=== PATIENT | female | born 1965 | race Two or more races ===

== ENCOUNTER 2016-07-13 15:42 | Emergency (ER) | payer OTHER ==
[~2016-07-13] VITALS: Ht 157.5 cm; Wt 104.3 kg
[2016-07-13 16:36] LABS: Basophils # (auto) 0 uL; Basophils % (auto) 0.5 % (0.0-2.0); DEFINITIVE VIEW TRANSMISSION; Eosinophils # (auto) 0.1 uL; Eosinophils % (auto) 1.1 % (0.0-7.0); Hematocrit 40.8 % (36.0-46.0); Hemoglobin 13.2 g/dL (12.2-16.2); Lymphocytes # (auto) 1.6 uL; Lymphocytes % (auto) 16.7 % (10.0-50.0); Mean Corpuscular Hemoglobin 26.1 pg (28.0-32.0); Mean Corpuscular Hgb Conc. 32.4 g/dL (32.0-36.0); Mean Corpuscular Volume 80.8 fL (80.0-100.0); Mean Platelet Volume 8.6 fL (7.4-10.4); Monocytes # (auto) 0.7 uL; Monocytes % (auto) 7.1 % (0.0-12.0); Neutrophils % (auto) 74.6 % (37.0-80.0); Platelet Count (auto) 242 10^3/uL (140-450); Red Cell Distribution Width 15.9 % (11.6-16.0); White Blood Cell 9.4 10^3/uL (4.4-10.8)
[2016-07-13 16:39] LABS: Albumin 3.8 g/dL (3.4-5.0); Anion Gap 8 (5-15); Aspartate Aminotransferase 30 U/L (15-37); BUN/Creatinine Ratio 16.9; Blood Urea Nitrogen 13 mg/dL (7-18); Calcium 8.9 mg/dL (8.5-10.1); Carbon Dioxide 29 mmol/L (21-32); Chloride 103 mmol/L (98-107); GFR African American 102 mL/min; GFR Non-African American 84 mL/min; Glucose 114 mg/dL (74-106); Magnesium 2.3 mg/dL (1.6-2.6); Potassium 3.6 mmol/L (3.5-5.1); Sodium 140 mmol/L (136-145)
[2016-07-13 16:44] LABS: Alkaline Phosphatase 76 U/L (45-117); Bilirubin, Total 0.3 mg/dL (0.2-1.0); Total Protein 7.6 g/dL (6.4-8.2)
[2016-07-13] MEDS ORDERED: SODIUM CHLORIDE 0.9% 1,000 ML IV ONE (17:00)
[2016-07-13] MEDS ORDERED: LORazepam 2MG/ML-1ML VIAL IV ONE (17:00)
[2016-07-13 19:48] VITALS: BP 149/91
== END 2016-07-13 19:51 | disposition home or self-care (01) ==
LOC: ER 15:42
DX: F41.9 Anxiety disorder, unspecified (principal); I10 Essential (primary) hypertension
CPT/HCPCS: 36415; 80053; 83735; 84443; 84484; 85025; 93005

== ENCOUNTER 2022-02-28 10:19 | Emergency (ER) | payer OTHER ==
[~2022-02-28] VITALS: Ht 157.5 cm; Wt 99.5 kg
[2022-02-28 11:09] LABS: Basophils # (auto) 0.1 10 ^3/uL (0-0.2); Eosinophils # (auto) 0.1 10 ^3/uL (0-0.8); Eosinophils % (auto) 2.2 % (0.0-7.0); Hematocrit 48.7 % (36.0-46.0); Lymphocytes # (auto) 1.3 10 ^3/uL (0.4-5.4); Lymphocytes % (auto) 22.5 % (10.0-50.0); Mean Corpuscular Hemoglobin 29.5 pg (28.0-32.0); Mean Corpuscular Hgb Conc. 32.9 g/dL (32.0-36.0); Mean Corpuscular Volume 89.7 fL (80.0-100.0); Monocytes # (auto) 0.5 10 ^3/uL (0-1.3); Monocytes % (auto) 8.8 % (0.0-12.0); Neutrophils # (auto) 3.7 10 ^3/uL (1.6-8.6); Neutrophils % (auto) 65.5 % (37.0-80.0); Nucleated Red Blood Cells % 0.2 %; Red Blood Cells 5.43 10^6/uL (4.0-5.20); Red Cell Distribution Width 13.1 % (11.8-14.3); White Blood Cell 5.7 10^3/uL (4.4-10.8)
[2022-02-28 11:31] LABS: BUN/Creatinine Ratio 22.9; Calcium 9.3 mg/dL (8.5-10.1); Potassium 4.4 mmol/L (3.5-5.1)
[2022-02-28 11:34] LABS: Bilirubin, Total 0.6 mg/dL (0.2-1.0); Total Protein 7.9 g/dL (6.4-8.2)
[2022-02-28] MEDS ORDERED: KETOROLAC TROMETH 60MG/2ML VIAL IM ONE (12:15)
[2022-02-28] MEDS ORDERED: SODIUM CHLORIDE 0.9% 1,000 ML IV ONE ×2 (12:30)
[2022-02-28 18:05] LABS: Urine Bacteria FEW /hpf (None Seen); Urine Blood TRACE /uL (Negative); Urine Mucus FEW (None Seen); Urine Specific Gravity 1.019 (1.001-1.035); Urine WBC 11 /hpf (0 - 5)
[2022-02-28 21:04] VITALS: BP 116/76
== END 2022-02-28 21:57 | disposition home or self-care (01) ==
LOC: ER 10:19
DX: A08.4 Viral intestinal infection, unspecified (principal); E86.0 Dehydration; F12.10 Cannabis abuse, uncomplicated; I10 Essential (primary) hypertension
CPT/HCPCS: 36415; 74176; 80053; 81001; 83690; 84484; 85025; 96361; 96374; 99284; J1885; J7030; 96360; 96372

== ENCOUNTER 2025-01-30 15:37 | Inpatient (IN) | payer MEDICAID, SELFPAY ==
[~2025-01-30] VITALS: Ht 157.5 cm; Wt 95.5 kg
--- NOTE | 2025-01-30 16:38 | ED.PDOC ---
History of Present Illness HPI Comments Ms. Ruiz is a 59-year-old female with prior medical history of prediabetes and hypertension, who presents today with chief complaint of dysuria. She states that for the last 3 weeks she has had dysuria, suprapubic pain described as intermittent burning, nonradiating, 8/10 intensity, associated with nausea and febrile sensation. The patient states that for the last 3 weeks she has been treated outpatient for this UTI that has not resolved. She brings documentation showing she was previously treated with ciprofloxacin and Bactrim without results. Additionally presents with results from a 01/23/2025 urine culture showing Klebsiella pneumoniae resistant to Ampicllin/Sulbactam, Ceftriaxone, Ciprofloxacin, Gentamicin, and Bactrim. She was sent to the ED from urgent due to outpatient treatment failure. On initial evaluation, the seems well, afebrile, vitals are stable, she is able to ambulate without difficulty, with no overt signs of distress. Chief Complaint: Urinary Time Seen by MD: 15:49 Allergies: Coded Allergies: NO KNOWN ALLERGIES (Unverified , 07/13/16) Information Source: Patient Mode of Arrival: Ambulatory Severity: Mild Timing: Weeks Duration: Since onset Past Medical History PAST MEDICAL HISTORY: HTN Past Medical History (Other): Prediabetes Surgical History: Denies all surgeries WATER PUMP SERVICER History: No Pertinent WATER PUMP SERVICER History Family History Family History: Family hx of DM, Family hx of Cancer, Family hx of HTN Social History Smoker: Non-Smoker, Other Alcohol: Denies ETOH Use Drugs: Denies Drug Use Lives In: Home Constitutional: denies: chills, diaphoresis, fatigue, fever, malaise, sweats, weakness EENTM: denies: blurred vision, double vision, hearing loss, nasal discharge, throat pain Respiratory: denies: cough, hemoptysis, orthopnea, shortness of breath Cardiovascular: denies: chest pain, dizzy spells, diaphoresis, Dyspnea on exertion, edema, lightheadedness, palpitations Gastrointestinal: reports: nausea, others (Suprapubic pain ); denies: abdomen distended, abdominal pain, constipated, diarrhea, dysphagia, difficulty swallowing, hematemesis, melena, poor appetite, poor fluid intake, rectal bleeding, vomiting Genitourinary: reports: burning, dysuria, frequency; denies: flank pain, hematuria, incontinence, pain, urgency Neurological: denies: dizziness, fainting, headache, left sided weakness, numbness, paresthesia, seizure, tremors, weakness Musculoskeletal: denies: back pain, joint pain, joint swelling, muscle pain, muscle stiffness, neck pain Physical Exam General Appearance: Normal HEENT: Normal ENT Inspection, PERRL/EOMI, Pharynx Normal Neck: Full Range of Motion, Non-Tender, Normal Inspection Respiratory: Chest Non-Tender, Lungs Clear, No Accessory Muscle Use, No Respiratory Distress, Normal Breath Sounds Cardiovascular: No Edema, No Murmur, Normal Peripheral Pulses, Regular Rate/Rhythm Breast Exam: Deferred Gastrointestinal: Non Tender, Normal Bowel Sounds, Soft Genitalia: Deferred Pelvic: Deferred Rectal: Deferred Extremities: Normal capillary refill, Normal inspection, Normal range of motion, Non-tender, No pedal edema Neurologic: Alert, Normal Affect, Normal Mood Cerebellar Function: Normal Reflexes: NOT DONE Skin: Normal Color Peripheral Pulses: 3+ dorsalis pedis (R), 3+ dorsalis pedis (L) Lymphatic: Other (No cervical adenopathy) Was a procedure done? Was a procedure done?: No Differential Dx Considerations may include: Cystitis, Pyelonephritis, urethritis, interstitial cystitis, nephrolithiasis, sepsis, septic shock X-Ray, Labs, Meds, VS Vital Signs Date Time Temp Pulse Resp B/P (MAP) Pulse Ox O2 Delivery O2 Flow Rate FiO2 01/30/25 15:44 97.9 91 15 147/94 96 97.9 Lab Test 01/30/25 19:05 01/30/25 17:11 Range/Units Urine Color Pending Urine Clarity Pending Urine pH Pending Urine Specific Malmo Pending Urine Protein Pending Urine Ketones Pending Urine Blood Pending Urine Nitrite Pending Urine Bilirubin Pending Urine Urobilinogen Pending Urine Leukocyte Esterase Pending Urine RBC Pending Urine Microscopic WBC Pending Urine Squamous Epithelial Cells Pending Urine Bacteria Pending Urine Glucose Pending White Blood Count 8.1 4.4-10.8 10^3/uL Red Blood Count 5.14 4.0-5.20 10^6/uL Hemoglobin 15.9 12.2-16.2 g/dL Hematocrit 46.0 36.0-46.0 % Mean Corpuscular Volume 89.5 80.0-100.0 fL Mean Corpuscular Hemoglobin 30.9 28.0-32.0 pg Mean Corpuscular Hemoglobin Concent 34.6 32.0-36.0 g/dL Red Cell Distribution Width 13.2 11.8-14.3 % Platelet Count 244 140-450 10^3/uL Mean Platelet Volume 7.6 6.9-10.8 fL Neutrophils (%) (Auto) 62.6 37.0-80.0 % Lymphocytes (%) (Auto) 26.3 10.0-50.0 % Monocytes (%) (Auto) 8.2 0.0-12.0 % Eosinophils (%) (Auto) 1.9 0.0-7.0 % Basophils (%) (Auto) 1.0 0.0-2.0 % Neutrophils # (Auto) 5.1 1.6-8.6 10 ^3/uL Lymphocytes # (Auto) 2.1 0.4-5.4 10 ^3/uL Monocytes # (Auto) 0.7 0-1.3 10 ^3/uL Eosinophils # (Auto) 0.2 0-0.8 10 ^3/uL Basophils # (Auto) 0.1 0-0.2 10 ^3/uL Nucleated Red Blood Cells 1.1 % Sodium Level 143 136-145 mmol/L Potassium Level 3.6 3.5-5.1 mmol/L Chloride Level 106 98-107 mmol/L Carbon Dioxide Level 29 20-31 mmol/L Anion Gap 8 5-15 Blood Urea Nitrogen 9 9-23 mg/dL Creatinine 0.68 0.550-1.02 mg/dL Glomerular Filtration Rate Calc 100 >90 mL/min BUN/Creatinine Ratio 13.2 10.0-20.0 Serum Glucose 95 74-106 mg/dL Lactic Acid Level 0.7 0.4-2.0 mmol/L Calcium Level 9.9 8.7-10.4 mg/dL Current Medications Medications (Trade) Dose Ordered Sig/Guido Route Start Time Stop Time Status Last Admin Piperacillin Sod/ Tazobactam Sod 100 ml @ 100 mls/hr ONCE ONCE IV 01/30/25 16:30 01/30/25 17:29 DC 01/30/25 19:01 Time of 1ST Reevaluation: 17:49 Reevaluation 1ST: Unchanged Patient Education/Counseling: Diagnosis, Treatment Family Education/Counseling: No Family Present Comments The patient presents today from urgent care for evaluation after outpatient treatment failure of UTI She presents documentation stating she was previously treated with ciprofloxacin and Bactrim without result She presents outside urine culture result from 01/23/2025 showing [id number] CFU/mL of Klebsiella pneumoniae resistant to Ampicillin/sulbactam, ceftriaxone, ciprofloxacin, gentamicin and Bactrim. Culture shows sensitivity to Zosyn, amikacin, ertapenem, and meropenem. CBC within normal range, BMP normal range , lactic acid is 0.7, results of UA are pending Due to failure of outpatient oral antibiotic treatment, the patient will be admitted for IV antibiotics Due to outside cultures showing sensitivity to Zosyn, the patient was given 1 dose of Zosyn SEPSIS Sepsis Screen Date sepsis recognized/suspect: Jan 30, 2025 Time Sepsis recognized/suspect: 154 Recent Procedure: No On Antibiotic Therapy: No Respiratory Rate >20: No Heart Rate >90: No Temp<36 C (96.8 F) or >38.3 C: No SBP <90 or MAP <65 mmHG: No New Acute Mental Status Change: No Is the patient on CPAP, BIPAP,: No Physician Orders Urinalysis (01/30/25 16:11) Blood Culture (01/30/25 16:16) Urine Bacterial Culture (01/30/25 16:16) Vital Signs Date Time Temp Pulse Resp B/P (MAP) Pulse Ox O2 Delivery O2 Flow Rate FiO2 01/30/25 15:44 97.9 91 15 147/94 96 97.9 Laboratory Tests Test 01/30/25 17:11 Lactic Acid Level 0.7 mmol/L (0.4-2.0) White Blood Count 8.1 10^3/uL (4.4-10.8) Medications Medications Dose Ordered Sig/Guido Route Start Time Stop Time Status Last Admin Dose Admin Piperacillin Sod/ Tazobactam Sod 100 ml @ 100 mls/hr ONCE ONCE IV 01/30/25 16:30 01/30/25 17:29 DC 01/30/25 19:01 Departure 1 Departure Time of Disposition: 15:38 Impression: Primary Impression: UTI (urinary tract infection) Disposition: 30 STILL A PATIENT Admit to: Med Surg Condition: Stable Critical Care Note Critical Care Time?: No Stability Stability form required: DIXIE Restrepo RESIDENT Jan 30, 2025 16:38
[2025-01-30 17:29] LABS: Hematocrit 46.0 % (36.0-46.0); Hemoglobin 15.9 g/dL (12.2-16.2); Mean Corpuscular Hemoglobin 30.9 pg (28.0-32.0); Mean Corpuscular Volume 89.5 fL (80.0-100.0); Nucleated Red Blood Cells % 1.1 %
[2025-01-30 17:32] LABS: Chloride 106 mmol/L (98-107); Potassium 3.6 mmol/L (3.5-5.1); Sodium 143 mmol/L (136-145)
[2025-01-30 17:33] LABS: Anion Gap 8 (5-15); Carbon Dioxide 29 mmol/L (20-31)
[2025-01-30 17:34] LABS: Calcium 9.9 mg/dL (8.7-10.4)
[2025-01-30 17:38] LABS: Glucose 95 mg/dL (74-106)
[2025-01-30 17:39] LABS: BUN/Creatinine Ratio 13.2 (10.0-20.0); Blood Urea Nitrogen 9 mg/dL (9-23)
[2025-01-30] MEDS: PIPERACILLIN-TAZOB 3.375GM 100 ML IV ONE (19:01)
[2025-01-30 19:47] LABS: Urine Protein, UAD Negative (Negative)
[2025-01-30 21:00] VITALS: PULSE 79; RESP 20; O2SAT 98
[2025-01-30] MEDS ORDERED: ONDANSETRON HCL 4 MG/2 ML VIAL IV PRN (22:15)
[2025-01-30] MEDS ORDERED: ACETAMINOPHEN 325 MG TAB PO PRN (22:15)
--- NOTE | 2025-01-30 22:26 | DVHHP2 ---
History of Present Illness Reason for Visit: Urinary symptoms History of Present Illness 59-year-old female presents for evaluation of urinary symptoms. Patient reports being treated for a urinary tract infection for the past three weeks. She states completing the last day of antibiotics today. She reports still having dysuria with urinary frequency. Denies fever or chills. No abdominal pain. Past Medical History Hypertension Past Surgical History Denies Family History Noncontributory Smoke: No ALCOHOL: none Drugs: None Lives: with Family Review of Systems Review of Systems Review of systems are currently negative otherwise addressed in HPI. Allergies: Coded Allergies: NO KNOWN ALLERGIES (Unverified , 07/13/16) Exam Vital Signs Vital Signs Date Time Temp Pulse Resp B/P (MAP) Pulse Ox O2 Delivery O2 Flow Rate FiO2 01/30/25 21:23 97.8 69 14 125/86 (99) 95 97.8 Exam Gen: 59-year-old female in mild distress Skin: Warm, dry, normal color and texture, no rash. HEENT: Normocephalic atraumatic, mucous membranes moist and pink. Neck: Cervical and supraclavicular nodes normal without enlargement, trachea is midline, thyroid gland is normal without masses. Pulmonary: Clear to auscultation and percussion bilaterally. Cardiac: Regular rate and rhythm. No murmur Abdomen: Soft, nontender, nondistended, bowel sounds present all 4 quadrants, no guarding, no rigidity, no organomegaly. Extremities: No cyanosis, clubbing, no edema Neuro: Cranial nerves II through XII grossly intact, normal affect and speech, no focal motor deficits. Labs/Xrays Labs Test 01/30/25 19:05 01/30/25 17:11 Range/Units Urine Color Light-yellow Yellow Urine Clarity Clear Clear Urine pH 6.5 5.0-9.0 Urine Specific Proctor 1.016 1.001-1.035 Urine Protein Negative Negative Urine Ketones Negative Negative Urine Blood Negative Negative /uL Urine Nitrite Negative Negative Urine Bilirubin Negative Negative Urine Urobilinogen Normal Negative mg/dL Urine Leukocyte Esterase Negative Negative /uL Urine RBC 2 0 - 4 /hpf Urine Microscopic WBC 1 0-5 /HPF Urine Squamous Epithelial Cells Few <5 /hpf Urine Bacteria None seen None Seen /hpf Urine Glucose Normal Normal mg/dL White Blood Count 8.1 4.4-10.8 10^3/uL Red Blood Count 5.14 4.0-5.20 10^6/uL Hemoglobin 15.9 12.2-16.2 g/dL Hematocrit 46.0 36.0-46.0 % Mean Corpuscular Volume 89.5 80.0-100.0 fL Mean Corpuscular Hemoglobin 30.9 28.0-32.0 pg Mean Corpuscular Hemoglobin Concent 34.6 32.0-36.0 g/dL Red Cell Distribution Width 13.2 11.8-14.3 % Platelet Count 244 140-450 10^3/uL Mean Platelet Volume 7.6 6.9-10.8 fL Neutrophils (%) (Auto) 62.6 37.0-80.0 % Lymphocytes (%) (Auto) 26.3 10.0-50.0 % Monocytes (%) (Auto) 8.2 0.0-12.0 % Eosinophils (%) (Auto) 1.9 0.0-7.0 % Basophils (%) (Auto) 1.0 0.0-2.0 % Neutrophils # (Auto) 5.1 1.6-8.6 10 ^3/uL Lymphocytes # (Auto) 2.1 0.4-5.4 10 ^3/uL Monocytes # (Auto) 0.7 0-1.3 10 ^3/uL Eosinophils # (Auto) 0.2 0-0.8 10 ^3/uL Basophils # (Auto) 0.1 0-0.2 10 ^3/uL Nucleated Red Blood Cells 1.1 % Sodium Level 143 136-145 mmol/L Potassium Level 3.6 3.5-5.1 mmol/L Chloride Level 106 98-107 mmol/L Carbon Dioxide Level 29 20-31 mmol/L Anion Gap 8 5-15 Blood Urea Nitrogen 9 9-23 mg/dL Creatinine 0.68 0.550-1.02 mg/dL Glomerular Filtration Rate Calc 100 >90 mL/min BUN/Creatinine Ratio 13.2 10.0-20.0 Serum Glucose 95 74-106 mg/dL Lactic Acid Level 0.7 0.4-2.0 mmol/L Calcium Level 9.9 8.7-10.4 mg/dL SEPSIS Sepsis Screen Date sepsis recognized/suspect: Jan 30, 2025 Time Sepsis recognized/suspect: 1547 Recent Procedure: No On Antibiotic Therapy: No Respiratory Rate >20: No Heart Rate >90: No Temp<36 C (96.8 F) or >38.3 C: No SBP <90 or MAP <65 mmHG: No New Acute Mental Status Change: No Is the patient on CPAP, BIPAP,: No Physician Orders Blood Culture (01/30/25 16:16) Urine Bacterial Culture (01/30/25 16:16) Admit (01/30/25 20:02) Vital Signs Date Time Temp Pulse Resp B/P (MAP) Pulse Ox O2 Delivery O2 Flow Rate FiO2 01/30/25 21:23 97.8 69 14 125/86 (99) 95 97.8 01/30/25 15:44 97.9 91 15 147/94 96 97.9 Laboratory Tests Test 01/30/25 17:11 Lactic Acid Level 0.7 mmol/L (0.4-2.0) White Blood Count 8.1 10^3/uL (4.4-10.8) Medications Medications Dose Ordered Sig/Guido Route Start Time Stop Time Status Last Admin Dose Admin Piperacillin Sod/ Tazobactam Sod 100 ml @ 100 mls/hr ONCE ONCE IV 01/30/25 16:30 01/30/25 17:29 DC 01/30/25 19:01 100 MLS/HR Assessment/Plan Assessment/Plan Assessment Complicated UTI Hypertension Failed outpatient therapy Plan Admit the patient to [facility] to the hospitalist Ertapenem Resume home medications Continue treatment per orders. Plan discussed with: Patient My Orders Orders - [facility] Procedure Category Date Status Time Admit ADMIT 01/30/25 Transmitted 20:02 Date of Service: Jan 30, 2025 Billing Provider: [facility] Common Visit Codes: [id number] INP/OBS CARE (MOD) [facility] Jan 30, 2025 22:26
[2025-01-30 23:10] VITALS: BP 122/73; PULSE 65; RESP 17; TEMP 98.2; O2SAT 95
[2025-01-30 23:17] VITALS: BP 122/73; PULSE 65; RESP 16; TEMP 98.2; O2SAT 95
[2025-01-31 01:00] VITALS: BP 108/73; PULSE 55; RESP 17; TEMP 97.9; O2SAT 95
[2025-01-31 05:00] VITALS: BP 103/67; PULSE 53; RESP 17; TEMP 98; O2SAT 97
[2025-01-31 06:18] LABS: Anion Gap 9 (5-15); Carbon Dioxide 28 mmol/L (20-31); Chloride 105 mmol/L (98-107); Potassium 3.7 mmol/L (3.5-5.1); Sodium 142 mmol/L (136-145)
[2025-01-31 06:20] LABS: Calcium 9.4 mg/dL (8.7-10.4)
[2025-01-31 06:25] LABS: BUN/Creatinine Ratio 15.7 (10.0-20.0); Blood Urea Nitrogen 11 mg/dL (9-23); Glucose 93 mg/dL (74-106)
[2025-01-31 08:00] VITALS: RESP 17; O2SAT 97
[2025-01-31 09:00] VITALS: BP 108/68; PULSE 62; RESP 17; TEMP 97.7; O2SAT 97
[2025-01-31] MEDS ORDERED: PATIENTS OWN MEDICATION (ertapenem 1 GM) IV SCH (10:00)
[2025-01-31] MEDS: ERTAPENEM IV SCH (10:40)
[2025-01-31] MEDS: NS IV SCH (10:40)
[2025-01-31] MEDS ORDERED: BACDST PO (11:05)
[2025-01-31 13:00] VITALS: BP_SYST 108; BP_SYST 117; BP_DIAS 68; BP_DIAS 85; PULSE 66; RESP 17; TEMP 36.5; O2SAT 94
== END 2025-01-31 15:05 | disposition home or self-care (01) | DRG 690 ==
LOC: ER 15:37 → OVERFLOW 20:03 → CENTRAL 23:10
PROVIDERS: ADMIT Hospitalist; ATTEND Hospitalist
DX: N39.0 Urinary tract infection, site not specified (principal); I10 Essential (primary) hypertension; Z83.3 Family history of diabetes mellitus; Z82.49 Family history of ischemic heart disease and other diseases of the circulatory system; Z79.899 Other long term (current) drug therapy
CPT/HCPCS: 36415; 80048; 81001; 83605; 85025; 87040; 87086; 96365; G0378; J2543